=== PATIENT | male | born 1965 | race Caucasian/White ===

== ENCOUNTER 2021-07-16 10:52 | Emergency (ER) | payer OTHER ==
[2021-07-16] MEDS ORDERED: Bacitracin Oint 1 GM U/D Packet TOP ONE (12:08)
--- NOTE | 2021-07-16 12:14 | EDM.PDOC ---
ED HPI GENERAL MEDICAL PROBLEM - General Chief Complaint: Skin Complaint Stated Complaint: LACERATION LEFT ELBOW Time Seen by Provider: 07/16/21 11:40 Source of Information: Reports: Patient History Limitations: Reports: No Limitations - History of Present Illness INITIAL COMMENTS - FREE TEXT/NARRATIVE: laceration wound to the left elbow while at work. injury by a clean metal pole. tetanus last year. bleeding controlled with pressure. minimal pain full ROM Onset: Sudden Duration: Minutes: (40) - Related Data Allergies Allergy/AdvReac Type Severity Reaction Status Date / Time No Known Allergies Allergy Verified 07/16/21 11:48 Home Meds: Home Meds . [Unable to Verify Home Med List] 07/16/21 [History] Review of Systems - Review of Systems Review Of Systems: See Below Constitutional: Reports: No Symptoms Eyes: Reports: No Symptoms Respiratory: Reports: No Symptoms Cardiovascular: Reports: No Symptoms GI/Abdominal: Reports: No Symptoms Musculoskeletal: Reports: No Symptoms Neurological: Reports: No Symptoms ED EXAM, GENERAL - Physical Exam Exam: See Below Exam Limited By: No Limitations General Appearance: Alert, WD/WN, No Apparent Distress Eye Exam: Bilateral Eye: EOMI, PERRL Head: Atraumatic Respiratory/Chest: No Respiratory Distress Cardiovascular: Normal Peripheral Pulses GI/Abdominal: Normal Bowel Sounds Skin Exam: Other (left elbow laceration 3 cm) ED TRAUMA EXTREMITY PROCEDURES - Laceration/Wound Repair Left Elbow Lac/Wound Length In cm: 3 Appearance: Superficial, Linear Distal NVT: Neuro & Vascular Intact, No Tendon Injury Anesthetic Type: Local Local Anesthesia - Lidocaine (Xylocaine): 1% with EPI Local Anesthetic Volume: 3cc Skin Prep: Chlorhexidine (Hibiciens) Exploration/Debridement/Repair: Wound Explored, No Foreign Material Found Closed With: Sutures Suture Size: 4-0 # of Sutures: 7 Suture Type: Prolene, Simple Sterile Dressing Applied: Provider Tetanus Status Addressed: Yes Complications: No Course - Vital Signs Last Recorded V/S: Last Vital Signs Temp 36.1 C 07/16/21 11:53 Pulse 75 07/16/21 11:53 Resp 16 07/16/21 11:53 BP 126/84 07/16/21 11:53 Pulse Ox - Orders/Labs/Meds Meds: Medications Discontinued Medications Generic Name Dose Route Start Last Admin Trade Name Freq PRN Reason Stop Dose Admin Bacitracin 1 dose 07/16/21 12:08 Bacitracin Oint 1 Gm U/D Packet TOP 07/16/21 12:09 ONETIME ONE - Re-Assessments/Exams Free Text/Narrative Re-Assessment/Exam: wound was washed and cleaned see procedure note for suturing Departure - Departure Time of Disposition: 12:13 Disposition: Home, Self-Care 01 Condition: Good Clinical Impression: Laceration of elbow, left Qualifiers: Encounter type: initial encounter Qualified Code(s): S51.012A - Laceration without foreign body of left elbow, initial encounter - Discharge Information *PRESCRIPTION DRUG MONITORING PROGRAM REVIEWED*: Not Applicable *COPY OF PRESCRIPTION DRUG MONITORING REPORT IN PATIENT ISMAEL: Not Applicable Instructions: Laceration Care, Adult, [id number], Sutures, Surekha, or Adhesive Wound Closure Referrals: PCP,None [Primary Care Provider] - Forms: ED Department Discharge Additional Instructions: - apply antibiotics ointment on the wound once daily - keep wound dry and clean - return to the ER if any signs of wound infection - stitches removal in 7-10 days Sepsis Event Note (ED) - Focused Exam Vital Signs: Vital Signs Temp Pulse Resp BP 07/16/21 11:53 36.1 C 75 16 126/84 - Problem List & Annotations (1) Laceration of elbow, left SNOMED Code(s): 83797196785772033 Code(s): S51.012A - LACERATION WITHOUT FOREIGN BODY OF LEFT ELBOW, INIT ENCNTR Status: Acute Priority: Low Current Visit: Yes Qualifiers: Encounter type: initial encounter Qualified Code(s): S51.012A - Laceration without foreign body of left elbow, initial encounter - Problem List Review Problem List Initiated/Reviewed/Updated: Yes - Assessment/Plan Plan: - apply antibiotics ointment on the wound once daily - keep wound dry and clean - return to the ER if any signs of wound infection - stitches removal in 7-10 days
== END 2021-07-16 12:21 | disposition home or self-care (01) ==
LOC: LB.ED 10:52
DX: S51.012A Laceration without foreign body of left elbow, initial encounter (principal); W26.8XXA Contact with other sharp object(s), not elsewhere classified, initial encounter; Y99.0 Civilian activity done for income or pay
CPT/HCPCS: 12002; 99282; 99282-25

== ENCOUNTER 2023-04-07 17:59 | Emergency (ER) | payer OTHER | END 2023-04-07 18:53 | disposition home or self-care (01) | LOC: LB.ED 17:59 | DX: S97.81XA Crushing injury of right foot, initial encounter (principal); W55.42XA Struck by pig, initial encounter | CPT/HCPCS: 73630-RT; 99282; 99283 ==

== ENCOUNTER 2023-10-25 11:02 | Emergency (ER) | payer OTHER ==
[2023-10-25] MEDS ORDERED: Sodium Chloride 0.9% 10 ML Syringe FLUSH PRN (12:09)
[2023-10-25] MEDS ORDERED: Ketorolac 60 MG/2 ML SDV IVPUSH SCH (12:15)
[2023-10-25] MEDS ORDERED: Sodium Chloride 0.9% 1,000 ML IV SCH ×2 (12:15)
[2023-10-25] MEDS ORDERED: Ondansetron 4 MG/2 ML SDV IVPUSH SCH (12:15)
[2023-10-25] MEDS ORDERED: Ondansetron 4 MG/2 ML SDV ONE (12:29)
[2023-10-25] MEDS ORDERED: Ketorolac 30 MG/ML SDV ONE (12:29)
[2023-10-25 12:30] LABS: BASOPHILS ABSOLUTE AUTO 0.02 K/uL (0.02-0.10); BASOPHILS PERCENT AUTO 0.3 % (0.0-0.5); EOSINOPHILS ABSOLUTE AUTO 0.01 K/uL (0.04-0.40); EOSINOPHILS PERCENT AUTO 0.1 % (1.0-5.0); HEMATOCRIT 41.5 % (40.0-54.0); HEMOGLOBIN 14.6 g/dL (13.0-18.0); LYMPHOCYTES ABSOLUTE AUTO 1.44 K/uL (1.50-4.00); LYMPHOCYTES PERCENT AUTO 21.4 % (20.0-40.0); MEAN CORPUSCULAR HEMOGLOBIN 30.7 pg (27.0-32.0); MEAN CORPUSCULAR HGB CONC 35.2 g/dL (31.0-35.0); MEAN CORPUSCULAR VOLUME 87 fL (76-96); MONOCYTES ABSOLUTE AUTO 1.35 K/uL (0.20-0.80); MONOCYTES PERCENT AUTO 20.1 % (3.0-10.0); NEUTROPHILS ABSOLUTE AUTO 3.91 K/uL (2.00-7.50); NEUTROPHILS PERCENT AUTO 58.1 % (45.0-70.0); PLATELET COUNT,PLT 260 K/uL (150-400); RED BLOOD CELL COUNT 4.75 M/uL (4.50-6.50); RED CELL DISTRIBUTION WIDTH 14.2 % (11.0-16.0); WHITE BLOOD CELL COUNT,WBC 6.7 K/uL (4.0-11.0)
[2023-10-25] MEDS ORDERED: Ketorolac 60 MG/2 ML SDV ONE (12:38)
[2023-10-25 12:49] LABS: INFLUENZA A NAA NEGATIVE (NEGATIVE); INFLUENZA B NAA NEGATIVE (NEGATIVE); RESPIRATORY SYNCYTIAL VIR NAA NEGATIVE (NEGATIVE)
[2023-10-25 12:52] LABS: A/G RATIO 0.8 (0.8-2.0); ALBUMIN 3.1 g/dL (3.4-5.0); ANION GAP 14.3 mmol/L (5.0-15.0); BILIRUBIN TOTAL 0.3 mg/dL (0.0-1.0); BUN/CREATININE RATIO 20.8 (6-25); CALCIUM 8.3 mg/dL (8.5-10.1); CARBON DIOXIDE,CO2 24.3 mmol/L (21.0-32.0); CREATININE 0.96 mg/dL (0.70-1.30); EST CRCL DRUG DOSING (CG) 103.13 mL/min; POTASSIUM,K 3.6 mmol/L (3.5-5.1); PROTEIN TOTAL,TP 6.8 g/dL (6.4-8.2)
[2023-10-25 12:52] LABS: CORONAVIRUS COVID-19 NAA NEGATIVE (NEGATIVE)
[2023-10-25 15:03] LABS: APPEARANCE,URINE CLEAR (CLEAR); BILIRUBIN,URINE SMALL (NEGATIVE); COLOR,URINE YELLOW; GLUCOSE,URINE NEGATIVE (NEGATIVE); KETONES,URINE NEGATIVE (NEGATIVE); LEUKOCYTE ESTERASE,URINE NEGATIVE (NEGATIVE); NITRITE,URINE NEGATIVE (NEGATIVE); OCCULT BLOOD,URINE NEGATIVE (NEGATIVE); PH,URINE 5.5 (5.0-8.0); PROTEIN,URINE 100 mg/dL (NEGATIVE); UROBILINOGEN,URINE 0.2 E.U./dL (0.2-1.0)
[2023-10-25 15:04] LABS: RBC,URINE 0-5 /HPF; WBC,URINE 0-5 /HPF
== END 2023-10-25 15:12 | disposition home or self-care (01) ==
LOC: LB.ED 11:02
DX: J11.1 Influenza due to unidentified influenza virus with other respiratory manifestations (principal); E03.9 Hypothyroidism, unspecified; Z79.82 Long term (current) use of aspirin; Z79.899 Other long term (current) drug therapy; Z91.030 Bee allergy status; Z88.8 Allergy status to other drugs, medicaments and biological substances; Z20.822 Contact with and (suspected) exposure to COVID-19
CPT/HCPCS: 0241U; 36415; 80053; 81001; 85025; 96361; 96374; 99283; 99284-25; J1885; J2405; J7030

== ENCOUNTER 2024-07-15 13:37 | Emergency (ER) | payer OTHER ==
[2024-07-15] MEDS: Ketorolac 30 MG/ML SDV IM ONE (15:25)
[2024-07-15] MEDS: Ketorolac 30 MG/ML SDV ONE (21:34)
== END 2024-07-15 16:45 | disposition home or self-care (01) ==
LOC: LB.ED 13:37
DX: M25.551 Pain in right hip (principal); E03.9 Hypothyroidism, unspecified; Z79.890 Hormone replacement therapy; Z79.899 Other long term (current) drug therapy; Z79.82 Long term (current) use of aspirin
CPT/HCPCS: 73502-RT; 96372; 99283; J1885

== ENCOUNTER 2025-06-17 11:47 | Emergency (ER) | payer OTHER | END 2025-06-17 12:35 | disposition home or self-care (01) | LOC: LB.ED 11:47 | DX: S59.911A Unspecified injury of right forearm, initial encounter (principal); I10 Essential (primary) hypertension; J45.909 Unspecified asthma, uncomplicated; E03.9 Hypothyroidism, unspecified; Z91.030 Bee allergy status; Z88.8 Allergy status to other drugs, medicaments and biological substances; Z79.82 Long term (current) use of aspirin; Z79.899 Other long term (current) drug therapy; Z79.51 Long term (current) use of inhaled steroids; W55.22XA Struck by cow, initial encounter; Y93.89 Activity, other specified | CPT/HCPCS: 73090-RT; 99283 ==

== ENCOUNTER 2025-10-03 17:20 | Emergency (ER) | payer OTHER ==
[2025-10-03] MEDS: Ketorolac 30 MG/ML SDV IM ONE (18:22)
[2025-10-03] MEDS: Lidocaine 2% 10 ML Amp INJECT ONE (18:40)
[2025-10-03] MEDS ORDERED: Acetaminophen/HYDROcodone 325-5 MG Tab ONE (19:00)
== END 2025-10-03 20:00 | disposition home or self-care (01) ==
LOC: LB.ED 17:20
DX: S52.615A Nondisplaced fracture of left ulna styloid process, initial encounter for closed fracture (principal); I10 Essential (primary) hypertension; E03.9 Hypothyroidism, unspecified; Z91.030 Bee allergy status; Z88.8 Allergy status to other drugs, medicaments and biological substances; Z79.82 Long term (current) use of aspirin; Z79.899 Other long term (current) drug therapy; Z79.890 Hormone replacement therapy; X50.1XXA Overexertion from prolonged static or awkward postures, initial encounter; Y93.89 Activity, other specified
CPT/HCPCS: 73110-LT; 96372; 99283; A9270-GY; J1885